=== PATIENT | male | born 1975 | race Caucasian/White ===

== ENCOUNTER 2018-10-26 01:47 | Emergency (ER) | payer BC, OTHER ==
[~2018-10-26] VITALS: Ht 182.9 cm; Wt 99.8 kg
[~2018-10-26 01:47] MED LIST: ALB.5NB20 HHN; ALBU0.632 IH; RT-FLOV110 INH
--- NOTE | 2018-10-26 01:50 | NUR ---
UPON ARRIVAL TO ROOM #6 PT SITTING ON SIDE ON ED CART. THIS RN ATTEMPTED TO START IV ON PT. PT STATES, "GET THAT FLINDSAY NEEDLE AWAY FROM ME, I DONT NEED NO IV!"
--- NOTE | 2018-10-26 02:04 | ED General ---
General Chief Complaint: Respiratory Problems Stated Complaint: SOB History of Present Illness Date Seen by Provider: Oct 26, 2018 Time Seen by Provider: 00:47 Initial Comments PT ARRIVES VIA POV WITH FEMALE, WANTING WHEELCHAIR ASSIST OUT OF VEHICLE AND INTO ER PT IS YELLING AND CURSING AT STAFF THE ENTIRE WAY INTO THE ER, AND CONTINUES TO CURSE AT NURSING STAFF SOON HE ARRIVES PT REFUSES TO ANSWER ANY OF NURSING QUESTIONS AND CONTINUES TO CURSE, SAYING "FUCK" REPEATEDLY WHEN I ENTERED ROOM, PT IS NOW REFUSING TO ANSWER ANY OF MY QUESTIONS AND THEN TELLS ME TO LEAVE THE ROOM, PT IS MAKING MULTIPLE DEMANDS ON ARRIVAL WELL--WANTS SOMETHING TO DRINK, WAS OFFERED A MOUTH SWAB, WHICH HE REFUSED AND CONTINUED A TIRADE OF CURSING. FEMALE WITH PT HAD REPORTED THAT PT IS SHORT OF BREATH AND HAS LEFT RIB PAIN PT IS ABLE TO YELL AND CURSE IN FULL SENTENCES ON ARRIVAL REFUSES TO GET ON ER CART 0240--FEMALE S.O. IS NOW IN ROOM, PT IS LAYING BACK, OUTSTRETCHED WITH LEGS CROSSED AT ANKLES, HAT OVER FACE. PT STATES HE "CAN'T TALK" "LOST HIS VOICE" AND CAN ONLY TALK IN A WHISPER AND FEMALE DOES ALL TALKING FOR PT ( PT WAS NOT HOARSE ON ARRIVAL) C/O LEFT SIDE OF CHEST PAIN FOR A COUPLE OF DAYS--"FEELS LIKE RIBS ARE POKING HIS LUNGS" PAIN RADIATES TO LEFT SHOULDER BLADE AND TOWARDS HIS SPINE NO INJURY C/O PRODUCTIVE COUGH C/O SUBJECTIVE FEVER, SWEATS, CHILLS C/O SORE THROAT NO NAUSEA/VOMITING AND HAS BEEN EATING AND DRINKING FAIR NO PROBLEMS URINATING NO KNOWN SICK CONTACTS HAS NOT SOUGHT CARE UNTIL TODAY TOOK 1 IBUPROFEN YESTERDAY-NO RELIEF. PCP: [facility], RAINA AVILA Allergies and Home Medications Allergies Coded Allergies: No Known Allergies (Verified Allergy, Unknown, 05/28/06) Home Medications Albuterol Sulfate 1 Puff Puff, 2 PUFF IH Q4H Prescribed by: LINNETTE ABDUL on 10/26/18435 Benzonatate 100 Mg Capsule, 1-2 TAB PO TID Prescribed by: LINNETTE ABDUL on 10/26/18435 Cefdinir 300 Mg Capsule, 300 MG PO BID Prescribed by: LINNETTE ABDUL on 2/21/19 0436 Methylprednisolone 4 Mg Tab.ds.pk, 4 MG PO UD Prescribed by: LINNETTE ABDUL on 10/26/18 0436 Patient Home Medication List Home Medication List Reviewed: Yes Review of Systems Review of Systems Constitutional: see HPI, chills, diaphoresis, fever EENTM: nose congestion, throat pain Respiratory: see HPI, cough Cardiovascular: see HPI, chest pain Gastrointestinal: no symptoms reported; No abdominal pain, No diarrhea, No nausea, No vomiting Genitourinary: no symptoms reported Musculoskeletal: see HPI Skin: no symptoms reported; No rash Psychiatric/Neurological: See HPI Past [id number] Hx Patient Social History Alcohol Use: Regular Use (HEAVY, DAILY USE BY HX) Recreational Drug Use: Yes (POLYSUBSTANCE ABUSE, ANDERS. CRACK COCAINE, THC; TESTED + FOR AMPHETAMINES, OPIATES, THC 10/26/18) Drug of Choice: POLYSUBSTANCE ABUSE, ANDERS, CRACK COCAINE, THC. TESTED + FOR AMPHET, THC, OPI Smoking Status: Current Everyday Smoker (1 PPD) Type Used: Cigarettes Recent Foreign Travel: No Contact w/Someone Who Travel: No Immunizations Up To Date Tetanus Booster (TDap): Unknown Seasonal Allergies Seasonal Allergies: Yes Past Medical History Surgeries: Yes (ANKLE FX/ORIF) Orthopedic Respiratory: Yes Asthma Cardiac: No Neurological: No Genitourinary: No Gastrointestinal: No Musculoskeletal: Yes (ANKLE FX) Fractures Endocrine: No HEENT: No Cancer: No Psychosocial: Yes (POLYSUBSTANCE ABUSE) Integumentary: No Blood Disorders: No Physical Exam Vital Signs Vital Signs - First Documented 10/26/18 01:47 Temp 98.2 Pulse 114 Resp 27 B/P (MAP) 156/112 (127) Pulse Ox 94 O2 Delivery Room Air Capillary Refill : Height, Weight, BMI Height: 6'1" Weight: 155lbs. oz. 70.936448wq; BMI Method:Stated General Appearance: Other (CONSTANT MOVEMENTS OF BODY AND FACE. BELLIGERENT NOTED ABOVE. THEN SOMEWHAT BIZARRE AFFECT FOR REMAINDER OF ER STAY. ) HEENT: PERRL/EOMI, Other (POOR DENTITION) Neck: Full Range of Motion, Normal Inspection, Non Tender, Supple Respiratory: No Accessory Muscle Use, No Respiratory Distress, Rales (IN BASES) , Other (MARKED LEFT LATERAL CHEST WALL TENDERNESS--EXAGGERATED PAIN RESPONSE. NO RASH. NO CREPITANCE OR SUB Q AIR. 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 Norm as Tested Skin: Normal Color, Warm/Dry, Tattoos/Piercings (EXTENSIVE TATTOOS) Progress/Results/Core Measures Suspected Sepsis SIRS Temperature: Pulse: Respiratory Rate: Laboratory Tests 10/26/18 03:09: White Blood Count 12.1H Blood Pressure / Mean: Laboratory Tests 10/26/18 03:09: Creatinine 0.75, INR Comment 0.9, Platelet Count 219, Total Bilirubin 0.4 Results/Orders Lab Results Laboratory Tests Test 10/26/18 03:09 10/26/18 05:18 Range/Units White Blood Count 12.1 H 4.3-11.0 10^3/uL Red Blood Count 4.91 4.35-5.85 10^6/uL Hemoglobin 15.6 13.3-17.7 G/DL Hematocrit 44 40-54 % Mean Corpuscular Volume 89 80-99 FL Mean Corpuscular Hemoglobin 32 25-34 PG Mean Corpuscular Hemoglobin Concent 36 32-36 G/DL Red Cell Distribution Width 13.8 10.0-14.5 % Platelet Count 219 130-400 10^3/uL Mean Platelet Volume 10.3 7.4-10.4 FL Neutrophils (%) (Auto) 80 H 42-75 % Lymphocytes (%) (Auto) 11 L 12-44 % Monocytes (%) (Auto) 7 0-12 % Eosinophils (%) (Auto) 2 0-10 % Basophils (%) (Auto) 0 0-10 % Neutrophils # (Auto) 9.6 H 1.8-7.8 X 10^3 Lymphocytes # (Auto) 1.4 1.0-4.0 X 10^3 Monocytes # (Auto) 0.8 0.0-1.0 X 10^3 Eosinophils # (Auto) 0.2 0.0-0.3 10^3/uL Basophils # (Auto) 0.0 0.0-0.1 10^3/uL Prothrombin Time 12.0 L 12.2-14.7 SEC INR Comment 0.9 0.8-1.4 Activated Partial Thromboplast Time 31 24-35 SEC Sodium Level 137 135-145 MMOL/L Potassium Level 4.3 3.6-5.0 MMOL/L Chloride Level 103 98-107 MMOL/L Carbon Dioxide Level 23 21-32 MMOL/L Anion Gap 11 5-14 MMOL/L Blood Urea Nitrogen 19 H 7-18 MG/DL Creatinine 0.75 0.60-1.30 MG/DL Estimat Glomerular Filtration Rate > 60 BUN/Creatinine Ratio 25 Glucose Level 120 H 70-105 MG/DL Calcium Level 9.5 8.5-10.1 MG/DL Corrected Calcium 9.3 8.5-10.1 MG/DL Magnesium Level 2.1 1.8-2.4 MG/DL Total Bilirubin 0.4 0.1-1.0 MG/DL Aspartate Amino Transf (AST/SGOT) 58 H 5-34 U/L Alanine Aminotransferase (ALT/SGPT) 81 H 0-55 U/L Alkaline Phosphatase 94 40-136 U/L B-Type Natriuretic Peptide < 10.0 <100.0 PG/ML Total Protein 7.6 6.4-8.2 GM/DL Albumin 4.2 3.2-4.5 GM/DL Amylase Level 55 25-125 U/L Lipase 23 8-78 U/L Urine Color YELLOW Urine Clarity SL CLOUDY Urine pH 8 5-9 Urine Specific Gardner 1.010 L 1.016-1.022 Urine Protein NEGATIVE NEGATIVE Urine Glucose (UA) NEGATIVE NEGATIVE Urine Ketones NEGATIVE NEGATIVE Urine Nitrite NEGATIVE NEGATIVE Urine Bilirubin NEGATIVE NEGATIVE Urine Urobilinogen NORMAL NORMAL MG/DL Urine Leukocyte Esterase NEGATIVE NEGATIVE Urine RBC (Auto) NEGATIVE NEGATIVE Urine RBC NONE /HPF Urine WBC RARE /HPF Urine Squamous Epithelial Cells RARE /HPF Urine Crystals NONE /LPF Urine Bacteria TRACE /HPF Urine Casts NONE /LPF Urine Mucus NEGATIVE /LPF Urine Culture Indicated NO Urine Opiates Screen POSITIVE H NEGATIVE Urine Oxycodone Screen NEGATIVE NEGATIVE Urine Methadone Screen NEGATIVE NEGATIVE Urine Propoxyphene Screen NEGATIVE NEGATIVE Urine Barbiturates Screen NEGATIVE NEGATIVE Ur Tricyclic Antidepressants Screen NEGATIVE NEGATIVE Urine Phencyclidine Screen NEGATIVE NEGATIVE Urine Amphetamines Screen POSITIVE H NEGATIVE Urine Methamphetamines Screen NEGATIVE NEGATIVE Urine Benzodiazepines Screen NEGATIVE NEGATIVE Urine Cocaine Screen NEGATIVE NEGATIVE Urine Cannabinoids Screen POSITIVE H NEGATIVE Micro Results Microbiology 10/26/18 Influenza Types A,B Antigen (SANNA) - Final, Complete My Orders Orders - LINNETTE ABDUL DO Saline Lock/Iv-Start (10/26/18 02:42) Monitor-Rhythm Ecg Trace Only (10/26/18 02:42) Amylase (10/26/18 02:42) BNP (10/26/18 02:42) Cbc With Automated Diff (10/26/18 02:42) Comprehensive Metabolic Panel (10/26/18 02:42) Drug Screen Stat (Urine) (10/26/18 02:42) Lipase (10/26/18 02:42) Magnesium (10/26/18 02:42) Protime With Inr (10/26/18 02:42) Partial Thromboplastin Time (10/26/18 02:42) Rapid Strep A Screen (10/26/18 02:42) Ua Culture If Indicated (10/26/18 02:42) Blood Culture (10/26/18 02:42) Influenza A And B Antigens (10/26/18 02:42) Chest Pa/Lat (2 View) (10/26/18 02:42) Ketorolac Injection (Toradol Injection) (10/26/18 04:00) Methylprednisolone Sod Succ (Solu-Medrol (10/26/18 04:10) Ceftriaxone For Iv Use (Rocephin For I (10/26/18 04:15) Incentive Spirometry Initial (10/26/18 04:36) Incentive Spirometry (Nursing) Q2H (10/26/18 04:36) Medications Given in ED Current Medications Medications Dose Ordered Sig/Yuli Route Start Time Stop Time Status Last Admin Dose Admin Ceftriaxone Sodium 1000 mg/ Sterile Water 10 ml @ 200 mls/hr ONCE ONCE IV 10/26/18 04:15 10/26/18 04:17 DC 10/26/18 04:40 200 MLS/HR Ketorolac Tromethamine 30 mg ONCE ONCE IVP 10/26/18 04:00 10/26/18 04:01 DC 10/26/18 03:55 30 MG Vital Signs/I&O 10/26/18 10/26/18 01:47 05:22 Temp 98.2 98.2 Pulse 114 109 Resp 27 26 B/P (MAP) 156/112 (127) 145/96 (112) Pulse Ox 94 95 O2 Delivery Room Air Room Air Capillary Refill : Progress Note : Progress Note SYMPTOMS IMPROVED AT DISMISSAL NO DETERIORATION IN PT'S CONDITION DURING ER STAY Diagnostic Imaging Comments CXR--BIBASILAR ATELECTASIS/INFILTRATES, PENDING RADIOLOGIST REVIEW Reviewed: Reviewed by Me Departure Impression Primary Impression: Left-sided chest wall pain Additional Impressions: Bronchitis Illicit drug use Disposition: HOME, SELF-CARE Condition: Stable Departure-Patient Inst. Referrals: [facility] (PCP) Primary Care Physician Patient Instructions: Acute Bronchitis, Adult (DC), Chest Pain That Is Not Caused by the Heart (DC), Costochondritis (DC) Add. Discharge Instructions: ALTERNATE ICE AND HEAT TO AREA AT 20 MINUTE INTERVALS ACTIVITIES TOLERATED TYLENOL AND MOTRIN NEEDED FOR PAIN OR FEVER USE INCENTIVE SPIROMETER EVERY HOUR FOR BREATHING FOLLOW UP WITH YOUR DR IN 2-3 DAYS IF NO BETTER All discharge instructions reviewed with patient and/or family. Voiced understanding. Scripts Albuterol Sulfate (PROAIR HFA) 1 Puff Puff 2 PUFF IH Q4H for BREATHING, #1 GM Prov: LINNETTE ABDUL DO 10/26/18 Benzonatate (TESSALON PERLES) 100 Mg Capsule 1-2 TAB PO TID for Cough, #30 CAP Prov: LINNETTE ABDUL DO 10/26/18 Methylprednisolone (Medrol) 4 Mg Tab.ds.pk 4 MG PO UD, #1 PKG Prov: LINNETTE ABDUL DO 10/26/18 Cefdinir (Cefdinir) 300 Mg Capsule 300 MG PO BID for FOR INFECTION, #20 CAP Prov: LINNETTE ABDUL DO 10/26/18 LINNETTE ABDUL DO Oct 26, 2018 02:04
[2018-10-26 03:16] LABS: BASOPHILS % (AUTO) 0 % (0-10); EOSINOPHILS # (AUTO) 0.2 10^3/uL (0.0-0.3); EOSINOPHILS % (AUTO) 2 % (0-10); HEMATOCRIT 44 % (40-54); HEMOGLOBIN 15.6 G/DL (13.3-17.7); LYMPHOCYTES # (AUTO) 1.4 X 10^3 (1.0-4.0); LYMPHOCYTES % (AUTO) 11 % (12-44); MEAN CORPUSCULAR HEMOGLOBIN 32 PG (25-34); MEAN CORPUSCULAR HGB CONC 36 G/DL (32-36); MEAN CORPUSCULAR VOLUME 89 FL (80-99); MEAN PLATELET VOLUME 10.3 FL (7.4-10.4); MONOCYTES # (AUTO) 0.8 X 10^3 (0.0-1.0); MONOCYTES % (AUTO) 7 % (0-12); NEUTROPHILS # (AUTO) 9.6 X 10^3 (1.8-7.8); NEUTROPHILS % (AUTO) 80 % (42-75); PLATELET COUNT 219 10^3/uL (130-400); RED CELL DISTRIBUTION WIDTH 13.8 % (10.0-14.5); WHITE BLOOD COUNT 12.1 10^3/uL (4.3-11.0)
[2018-10-26 03:32] LABS: INR 0.9 (0.8-1.4)
[2018-10-26 03:43] LABS: ALANINE AMINOTRANSFERASE 81 U/L (0-55); ALBUMIN 4.2 GM/DL (3.2-4.5); ALKALINE PHOSPHATASE 94 U/L (40-136); AMYLASE 55 U/L (25-125); BILIRUBIN,TOTAL 0.4 MG/DL (0.1-1.0); BUN/CREATININE RATIO 25; CALCIUM 9.5 MG/DL (8.5-10.1); CARBON DIOXIDE 23 MMOL/L (21-32); CHLORIDE 103 MMOL/L (98-107); CREATININE SERUM 0.75 MG/DL (0.60-1.30); GFR ESTIMATED > 60; GLUCOSE 120 MG/DL (70-105); LIPASE 23 U/L (8-78); MAGNESIUM 2.1 MG/DL (1.8-2.4); POTASSIUM 4.3 MMOL/L (3.6-5.0); SODIUM 137 MMOL/L (135-145); TOTAL PROTEIN 7.6 GM/DL (6.4-8.2)
--- NOTE | 2018-10-26 03:50 | NUR ---
PT NOTED TO BE DIAPHORETIC, TEARFUL, AND TENSE. PT REQUESTING PAIN MEDICATION.
[2018-10-26] MEDS ORDERED: KETOROLAC 30 MG/ML VIAL IVP ONE (04:00)
[2018-10-26] MEDS ORDERED: methylPREDNISolone 125 MG (Solu-MEDROL) VIAL IV STA (04:10)
[2018-10-26] MEDS ORDERED: cefTRIAXone FOR IV USE 1,000 MG in WATER (STERILE) FOR INJECTION 10 ML IV ONE (04:15)
[2018-10-26] MEDS ORDERED: BENZ100C18 PO (04:36)
[2018-10-26] MEDS ORDERED: CEFD300C3 PO (04:36)
[2018-10-26] MEDS ORDERED: RT-ALBUINH IH (04:36)
[2018-10-26] MEDS ORDERED: METH4TAB PO (04:36)
--- NOTE | 2018-10-26 04:40 | NUR ---
DR. CHANTELL MD IN ROOM PROVIDING INCENTIVE SPIROMETER TEACHING.
[2018-10-26 05:22] VITALS: BP 145/96
[2018-10-26 05:45] LABS: AMPHETAMINE SCREEN, URINE POSITIVE (NEGATIVE); BARBITURATE SCREEN URINE NEGATIVE (NEGATIVE); BENZODIAZEPINES SCREEN URINE NEGATIVE (NEGATIVE); CANNABINOID SCREEN, URINE POSITIVE (NEGATIVE); COCAINE SCREEN URINE NEGATIVE (NEGATIVE); METHADONE STAT NEGATIVE (NEGATIVE); METHAMPHETAMINE SCREEN URINE S NEGATIVE (NEGATIVE); OPIATE SCREEN URINE POSITIVE (NEGATIVE); OXYCODONE STAT NEGATIVE (NEGATIVE); PROPOXYPHENE STAT NEGATIVE (NEGATIVE); TRICYCLIC ANTIDEPRESSANTS SCRE NEGATIVE (NEGATIVE)
[2018-10-26 05:55] LABS: BACTERIA,URINE TRACE /HPF; BILIRUBIN,URINE NEGATIVE (NEGATIVE); CLARITY,URINE SL CLOUDY; COLOR,URINE YELLOW; GLUCOSE, URINE (UA) NEGATIVE (NEGATIVE); KETONES,URINE NEGATIVE (NEGATIVE); LEUKOCYTE ESTERASE ,URINE NEGATIVE (NEGATIVE); NITRITE,URINE NEGATIVE (NEGATIVE); PH,URINE 8 (5-9); PROTEIN,URINE NEGATIVE (NEGATIVE); SQUAMOUS EPITHELIAL CELL,UR RARE /HPF; UROBILINOGEN,URINE NORMAL (NORMAL); WBC,URINE RARE /HPF
--- NOTE | 2018-10-26 07:22 | Diagnostic Imaging Report ---
EXAM: CHEST PA/LAT (2 VIEW) INDICATION: Cough. Congestion. COMPARISON: None. FINDINGS: Normal heart size and pulmonary vascularity. No dense consolidation, pleural effusion or pneumothorax. No acute osseous findings. IMPRESSION: Negative chest. Dictated by: Dictated on workstation # [id number]
== END 2018-10-26 05:21 | disposition home or self-care (01) ==
LOC: EDUNIT# 01:47 → ER 01:51
DX: R07.89 Other chest pain (principal); J45.909 Unspecified asthma, uncomplicated; F15.10 Other stimulant abuse, uncomplicated; F14.10 Cocaine abuse, uncomplicated; F19.10 Other psychoactive substance abuse, uncomplicated; F12.10 Cannabis abuse, uncomplicated; F17.210 Nicotine dependence, cigarettes, uncomplicated; Z79.51 Long term (current) use of inhaled steroids; Z79.52 Long term (current) use of systemic steroids
CPT/HCPCS: 36415; 71046; 80053; 80306; 81000; 82150; 83690; 83735; 83880; 85025; 85610; 85730; 87040; 87804; 93041; 96365; 96375

== ENCOUNTER → 2021-07-02 | Outpatient (CLI) | payer BC ==
[~2021-07-02] MED LIST changes: +BENZ100C18 PO; +CEFD300C3 PO; +METH4TAB PO; +RT-ALBUINH IH
[2021-07-02 15:09] LABS: BODY FLUID APPEARENCE MKD CLDY; BODY FLUID COLOR YELLOW; BODY FLUID RBC COUNT 2250 /uL; BODY FLUID SOURCE SYNOVIAL; BODY FLUID WBC TOTAL COUNT 17000 /uL
[2021-07-02 15:16] LABS: BF OTHER CELLS 0 %; LYMPHOCYTES,BODY FLUID 1 %
== END ==
LOC: LABNPT 14:21
DX: M25.462 Effusion, left knee (principal)
CPT/HCPCS: 87070; 87075; 87205; 89051; 89060